=== PATIENT | female | born 1970 | race Caucasian/White ===

== ENCOUNTER 2023-09-11 20:11 | Emergency (ER) | payer MEDICAID, OTHER ==
[~2023-09-11] VITALS: Ht 160 cm; Wt 100.0 kg
[2023-09-11 20:49] VITALS: BP 139/84; PULSE 111; RESP 18; TEMP 97.9
[2023-09-11 22:22] VITALS: O2SAT 94
[2023-09-11] MEDS: diphenhdrAMINE HCL 50 MG/1 ML VL IM ONE (22:28)
[2023-09-11] MEDS: DexAMETHasone SOD PHOS 10MG/1ML VIAL INJ IM ONE (22:29)
== END 2023-09-11 23:30 | disposition home or self-care (01) ==
LOC: ER 20:11
DX: L50.0 Allergic urticaria (principal)
CPT/HCPCS: 96372; 99284; J1100; J1200